=== PATIENT | male | born 2000 | race Caucasian/White ===

== ENCOUNTER 2020-07-30 15:06 | Emergency (ER) | payer OTHER ==
[~2020-07-30] VITALS: Ht 177.8 cm; Wt 75.0 kg
[2020-07-30 15:26] VITALS: BP 119/66
--- NOTE | 2020-07-30 15:53 | NUR ---
PATIENT IS IN FT2. LARGE ABSCESS NOTED TO CHIN. PATIENT REPORTS PAIN AND PRESSURE IN CHIN, RADIATING TO BILAT CERVICAL GLANDS. DENIES ALLERGIES TO ANY MEDICATIONS.
[2020-07-30] MEDS ORDERED: CEPH-572 PO (16:12)
== END 2020-07-30 16:38 | disposition home or self-care (01) ==
LOC: ER 15:07
DX: L02.01 Cutaneous abscess of face (principal); L73.8 Other specified follicular disorders; F17.200 Nicotine dependence, unspecified, uncomplicated; Z79.899 Other long term (current) drug therapy
CPT/HCPCS: 99283

== ENCOUNTER 2021-07-29 08:38 | Emergency (ER) | payer OTHER ==
[~2021-07-29] VITALS: Ht 180.3 cm; Wt 77.3 kg
[2021-07-29 09:06] VITALS: BP 123/73
== END 2021-07-29 12:33 | disposition home or self-care (01) ==
LOC: ER 08:39
DX: U07.1 COVID-19 (principal); R05.9 Cough, unspecified
CPT/HCPCS: 87635; 99283; C9803